=== PATIENT | female | born 1975 | race African-American/Black ===

== ENCOUNTER 2018-09-27 19:37 | Inpatient (IN) | payer MEDICARE, BC ==
[~2018-09-27] VITALS: Ht 175.3 cm; Wt 96.2 kg
[2018-09-27] MEDS ORDERED: ONDANSETRON 4 MG INJ IV STA (20:26)
[2018-09-27] MEDS ORDERED: KETOROLAC 15 MG INJ IV STA (20:26)
[2018-09-27] MEDS ORDERED: LIDOCAINE/MYLANTA 40 ML BTL PO STA (20:26)
[2018-09-27] MEDS ORDERED: SOD CHLORIDE 0.9% 500 ML IV STA (20:26)
[2018-09-27] MEDS ORDERED: BELLADONNA/PHENOBARBITAL TAB PO STA (20:26)
[2018-09-27] MEDS ORDERED: CALC-143 PO (23:04)
[2018-09-27] MEDS ORDERED: TRAM50TA PO (23:04)
[2018-09-27] MEDS ORDERED: ZOLP5TAB7 PO (23:04)
[2018-09-27] MEDS ORDERED: ASPI-817 PO (23:04)
[2018-09-27] MEDS ORDERED: NITR0.4T32 SL (23:04)
[2018-09-27] MEDS ORDERED: BEN50 PO (23:04)
[2018-09-27] MEDS ORDERED: CARB100T2 PO (23:04)
[2018-09-27] MEDS ORDERED: MULT-902 PO (23:04)
[2018-09-27] MEDS ORDERED: PHEN200C PO (23:04)
[2018-09-27] MEDS ORDERED: HYDR-3980 PO (23:04)
--- NOTE | 2018-09-27 23:28 | ERD ---
ER Documentation Chief Complaint Chief Complaint chest pain since 1300 HPI This is a 43-year-old woman with a history of NH x2 presenting with pressure- like chest discomfort, belching, nausea, diaphoresis. She states symptoms began after eating but she also states pain is similar to prior episodes of NH, she did use aspirin prior to arrival and nitroglycerin x2 with mild improvement in symptoms. She denies recent fevers or chills, no vomiting, no blood per rectum or melena, no recent weight loss, no calf or leg swelling. ROS All systems reviewed and are negative except as per history of present illness. Medications Home Meds Reported Medications Calcium Citrate/Vitamin D (Citracal-Vitamin D 200 MG-250) 1 Each Tablet, 1 EACH PO BID, TAB 09/27/18 Multivitamin/Iron/Folic Acid (Centrum Adults Tablet) 1 Each Tablet, 1 EACH PO DAILY, TAB 09/27/18 Tramadol Hcl* (Ultram*) 50 Mg Tablet, 50 MG PO Q6H PRN for PAIN, TAB 09/27/18 Hydrocodone/Acetaminophen ([place] 10-325 Tablet) 1 Each Tablet, 1 EACH PO, TAB 09/27/18 Diphenhydramine Hcl* (Benadryl*) 50 Mg Cap, 50 MG PO Q6 PRN for ITCHING, CAP 09/27/18 Carbamazepine* (Carbamazepine*) 100 Mg Tab.chew, 100 MG PO TID, #90 TAB.CHEW 09/27/18 Phenytoin* Sodium Extended (Dilantin*) 200 Mg Capsule, 200 MG PO HS, CAP 09/27/18 Aspirin* (Aspirin* EC) 81 Mg Tablet.dr, 81 MG PO DAILY, TAB 09/27/18 Zolpidem Tartrate* (Zolpidem Tartrate*) 5 Mg Tablet, 5 MG PO QHS for 30 Days 09/27/18 Nitroglycerin* (Nitroglycerin* SL) 0.4 Mg Tab.subl, 0.4 MG SL PRN for CHEST PAIN 09/27/18 Allergies Allergies: Coded Allergies: No Known Allergy (Unverified , 09/27/18) PMhx/Soc Hypertension, CAD, history of NH x2 History of Surgery: Yes (hernia repair) Anesthesia Reaction: No Hx Neurological Disorder: No Hx Respiratory Disorders: No Hx Cardiac Disorders: Yes (htn, ) Hx Miscellaneous Medical Probl: No Hx Alcohol Use: No Hx Substance Use: No Hx Tobacco Use: No Smoking Status: Never smoker FmHx Family History: No diabetes Physical Exam Vitals Vital Signs Date Temp Pulse Resp B/P (MAP) Pulse Ox O2 O2 Flow FiO2 Time Delivery Rate 09/27/18 97.7 72 18 110/78 100 Room Air 21:01 (89) 09/27/18 97.7 81 18 120/77 100 19:48 (91) Physical Exam GENERAL: Well-developed, well-nourished, well-hydrated, in no apparent distress, looks nontoxic in appearance CARDIAC: Regular rate and rhythm, no murmurs rubs or gallops LUNGS: Clear bilaterally no wheezing crackles or stridor ABDOMEN: Soft nontender, no guarding, no rigidity, no rebound, no psoas sign no obturator sign. Normoactive bowel sounds SKIN: Warm and dry to touch, no abrasions, contusions, or hematomas, no lacerations, no ecchymosis, no target lesions, and without ulcers EXTREMITIES: No clubbing cyanosis or edema, calves are bilaterally symmetrical, no Homans sign, no popliteal cord sign. Distal pulses equal and bilateral PSYCH: Normal affect without agitation or irritability Result Diagram: 09/27/18205509/27/182055 Results 24 hrs Laboratory Tests Test 09/27/18 20:56 09/27/18 21:18 White Blood Count 6.8 10^3/ul Red Blood Count 4.21 10^6/ul Hemoglobin 12.7 g/dl Hematocrit 38.6 % Mean Corpuscular Volume 91.7 fl Mean Corpuscular Hemoglobin 30.2 pg Mean Corpuscular Hemoglobin Concent 32.9 g/dl Red Cell Distribution Width 14.1 % Platelet Count 253 10^3/UL Mean Platelet Volume 9.6 fl Immature Granulocytes % 0.300 % Neutrophils % 47.0 % Lymphocytes % 41.6 % Monocytes % 8.9 % Eosinophils % 1.9 % Basophils % 0.3 % Nucleated Red Blood Cells % 0.0 /100WBC Immature Granulocytes # 0.020 10^3/ul Neutrophils # 3.2 10^3/ul Lymphocytes # 2.8 10^3/ul Monocytes # 0.6 10^3/ul Eosinophils # 0.1 10^3/ul Basophils # 0.0 10^3/ul Nucleated Red Blood Cells # 0.0 10^3/ul Sodium Level 143 mmol/L Potassium Level 3.6 mmol/L Chloride Level 108 mmol/L Carbon Dioxide Level 27 mmol/L Anion Gap 8 Blood Urea Nitrogen 16 mg/dl Creatinine 0.81 mg/dl Est Glomerular Filtrat Rate mL/min > 60 mL/min Glucose Level 101 mg/dl Calcium Level 9.3 mg/dl Total Bilirubin 0.3 mg/dl Direct Bilirubin 0.00 mg/dl Indirect Bilirubin 0.3 mg/dl Aspartate Amino Transf (AST/SGOT) 24 IU/L Alanine Aminotransferase (ALT/SGPT) 24 IU/L Alkaline Phosphatase 46 IU/L Troponin I < 0.012 ng/ml Total Protein 6.7 g/dl Albumin 3.9 g/dl Globulin 2.80 g/dl Albumin/Globulin Ratio 1.39 Lipase 454 U/L POC Beta HCG, Qualitative NEGATIVE Current Medications Medications Dose Sig/Bob Start Time Status Last (Trade) Ordered Route PRN Stop Time Admin Dose Reason Admin Sodium 500 ml @ Q1H STAT 09/27/18 DC 09/27/18 Chloride 500 mls/hr IV 20:26 21:01 09/27/18 21:25 Ondansetron 4 mg ONCE STAT 09/27/18 DC 09/27/18 HCl (Zofran IV 20:26 21:00 Inj) 09/27/18 20:28 40 ml ONCE STAT 09/27/18 DC 09/27/18 Miscellaneous PO 20:26 21:00 Medication 09/27/18 20:28 (Gi Cocktail (2)) Belladonna/ 2 tab ONCE STAT 09/27/18 DC 09/27/18 Phenobarbital PO 20:26 21:00 () 09/27/18 20:28 Ketorolac 15 mg ONCE STAT 09/27/18 DC 09/27/18 Tromethamine IV 20:26 21:32 (Toradol) 09/27/18 20:28 Procedures/MDM IV line was established 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 Patient was afebrile I administered a GI cocktail p.o., 500 cc normal saline, Toradol 15 mg IV, Zofran 4 mg IV EKG performed, read by me revealed a normal sinus rhythm at 71 bpm, normal axis, narrow QRS complex, no concerning ST elevations or depressions noted Chest X-ray 1V Interpreted by me: Soft Tissue: No acute abnormalities Bones: No acute abnormalities Mediastinum/Cardiac Silhouette/Lungs: No acute abnormalities CBC and electrolytes are normal, liver function tests were normal, troponin was negative Patient admitted to telemetry setting for continued medical management and cardiology consultation. Departure Diagnosis: Primary Impression: Chest pain Chest pain type: unspecified Qualified Codes: R07.9 - Chest pain, unspecified Condition: KEELY Washington MD Sep 27, 2018 23:28
[2018-09-28 00:47] VITALS: BP 126/72; PULSE 60; RESP 18
[2018-09-28 01:13] VITALS: Ht 175.3 cm; Wt 96.2 kg
[2018-09-28] MEDS ORDERED: NACL 0.9% 3 ML SYG IV SCH (01:30)
[2018-09-28] MEDS ORDERED: ACETAMINOPHEN 325 MG TAB PO PRN (01:30)
[2018-09-28] MEDS ORDERED: ALBUTEROL/IPRATROPIUM (NEB) 3 ML AMP HHN PRN (01:30)
[2018-09-28] MEDS ORDERED: NITROGLYCERIN (SL) 0.4 MG TAB SL PRN (01:30)
[2018-09-28] MEDS ORDERED: traMADol 50 MG TAB PO PRN (01:30)
[2018-09-28] MEDS ORDERED: CARBAMAZEPINE 200 MG TAB PO SCH (01:30)
[2018-09-28] MEDS ORDERED: ONDANSETRON 4 MG INJ IV PRN (01:30)
[2018-09-28] MEDS ORDERED: DIPHENHYDRAMINE 50 MG CAP PO PRN (01:30)
[2018-09-28] MEDS: PHENYTOIN 100 MG CAP PO SCH ×3 (01:43→12:19)
[2018-09-28] MEDS: CARBAMAZEPINE 200 MG TAB PO SCH ×3 (01:43→12:20)
[2018-09-28 04:22] VITALS: BP 117/75; PULSE 72; RESP 18
[2018-09-28 07:50] VITALS: BP 118/70; PULSE 57; RESP 18
[2018-09-28] MEDS ORDERED: carBAMAZepine CHEW 100 MG CHEW PO SCH ×2 (09:00)
[2018-09-28] MEDS ORDERED: HEPARIN 5,000 UNIT/1 ML VIAL SC SCH (09:00)
[2018-09-28] MEDS ORDERED: MULTIVITAMINS/MINERALS TAB PO SCH (09:00)
[2018-09-28] MEDS ORDERED: ASPIRIN (EC) 81 MG TAB PO SCH (09:00)
--- NOTE | 2018-09-28 09:15 | HP ---
Date/Time of Note Date/Time of Note DATE: 09/28/18 TIME: 09:12 Assessment/Plan VTE Prophylaxis Pharmacological prophylaxis: heparin Lines/Catheters IV Catheter Type (from Nrsg): Saline Lock Assessment/Plan Assessment/Plan 43-year-old female with self-reported history of RI x2 (no cardiac cath) here with chest pain with associated left arm numbness. Need to rule out ACS PLAN -Telemetry monitoring -Serial troponin -Aspirin with as needed nitro -2D echo and cardiology consult -Trial of PPI Result Diagram: 09/28/18 0637 09/28/18 0637 Results 24hrs Laboratory Tests Test 09/27/18 20:56 09/27/18 21:18 09/28/18 01:35 09/28/18 06:37 White Blood Count 6.8 7.1 Red Blood Count 4.21 4.60 Hemoglobin 12.7 13.8 Hematocrit 38.6 41.7 Mean Corpuscular 91.7 90.7 Volume Mean Corpuscular 30.2 30.0 Hemoglobin Mean Corpuscular 32.9 33.1 Hemoglobin Concent Red Cell 14.1 14.0 Distribution Width Platelet Count 253 284 Mean Platelet Volume 9.6 9.7 Immature 0.300 0.100 Granulocytes % Neutrophils % 47.0 50.9 Lymphocytes % 41.6 37.4 Monocytes % 8.9 9.3 Eosinophils % 1.9 2.0 Basophils % 0.3 0.3 Nucleated Red Blood 0.0 0.0 Cells % Immature 0.020 0.010 Granulocytes # Neutrophils # 3.2 3.6 Lymphocytes # 2.8 2.6 Monocytes # 0.6 0.7 Eosinophils # 0.1 0.1 Basophils # 0.0 0.0 Nucleated Red Blood 0.0 0.0 Cells # Sodium Level 143 142 Potassium Level 3.6 4.3 Chloride Level 108 109 Carbon Dioxide Level 27 25 Anion Gap 8 8 Blood Urea Nitrogen 16 14 Creatinine 0.81 0.89 Est Glomerular > 60 > 60 Filtrat Rate mL/min Glucose Level 101 107 Calcium Level 9.3 9.0 Total Bilirubin 0.3 0.4 Direct Bilirubin 0.00 0.00 Indirect Bilirubin 0.3 0.4 Aspartate Amino 24 30 Transf (AST/SGOT) Alanine 24 19 Aminotransferase (AL T/SGPT) Alkaline Phosphatase 46 56 Troponin I < 0.012 < 0.012 Total Protein 6.7 7.0 Albumin 3.9 4.0 Globulin 2.80 3.00 Albumin/Globulin 1.39 1.33 Ratio Lipase 454 H 126 POC Beta HCG, NEGATIVE Qualitative Creatine Kinase 181 Creatine Kinase 0.5 Index Creatinine Kinase MB 0.97 (Mass) Hemoglobin A1c 5.5 Magnesium Level 2.0 Triglycerides Level 97 Cholesterol Level 158 LDL Cholesterol, 98 Calculated HDL Cholesterol 41 Cholesterol/HDL 3.8 Ratio Thyroid Stimulating 2.560 Hormone (TSH) Test 09/28/18 06:38 Creatine Kinase 194 Creatine Kinase 0.5 Index Creatinine Kinase MB 0.94 (Mass) Troponin I < 0.012 HPI/ROS Admit Date/Time Admit Date/Time Sep 27, 2018 at 23:28 Hx of Present Illness Patient is a 43-year-old female with a self-reported history of RI x2 (2 years ago and last year). Patient presented to ER complaining of chest pain. Pain is located in the mid chest with associated left arm numbness. Patient initially thought it was " gas pain", but when the pain persisted, she decided to come to the ER for evaluation. She took nitro which improved the pain. She said she never had a cardiac cath when she was diagnosed with reported RI at [facility]. She reported nausea, but no vomiting. She did however report some diaphoresis. She states she has been taking her aspirin regularly, however her cholesterol medication has been stopped by her PCP. When she presented to the ER, vitals were stable. First troponin negative, EKG without ST-T wave abnormalities. CBC and CMP unremarkable. Chest x-ray without acute findings PMH/Family/Social Past Medical History Past Surgical Hx: other (see HPI) Family History Significant Family History: no pertinent family hx Social History Alcohol Use: none Smoking Status: Never smoker Drug Use: none Exam Constitutional: No acute distress Head: normocephalic, atraumatic Eyes: EOMI, PERRL Respiratory: no distress Cardiovascular: regular rate and rhythm Gastrointestinal: soft Extremities: normal pulses Medications Current Medications Phenytoin (Dilantin) 100 mg TID PO Last administered on 09/28/18at 08:32; Admin Dose 100 MG; Start 09/28/18 at 01:30 IV Flush (NS 3 ml) 3 ml PER PROTOCOL IV ; Start 09/28/18 at 01:30 Ondansetron HCl (Zofran Inj) 4 mg Q6H PRN IV NAUSEA/VOMITING; Start 09/28/18 at 01:30 Nitroglycerin (Nitroglycerin (Sl Tab) 0.4 Mg) 1 tab Q5M PRN SL .CHEST PAIN; Start 09/28/18 at 01:30 Acetaminophen (Tylenol Tab) 650 mg Q6H PRN PO .PAIN 1-3 OR TEMP; Start 09/28/18 at 01:30 Heparin Sodium (Porcine) (Heparin (5000 Units/1ml)) 5,000 unit Q12 SC Last administered on 09/28/18at 08:32; Admin Dose 5,000 UNIT; Start 09/28/18 at 09:00 Albuterol/ Ipratropium (Duoneb) 3 ml Q2H RESP THERAPY PRN HHN SHORTNESS OF BREATH; Start 09/28/18 at 01:30 Aspirin (Halfprin) 81 mg DAILY PO Last administered on 09/28/18at 08:31; Admin Dose 81 MG; Start 09/28/18 at 09:00 Diphenhydramine HCl (Benadryl) 50 mg Q6 PRN PO ITCHING; Start 09/28/18 at 01:30 Tramadol HCl (Ultram) 50 mg Q6H PRN PO PAIN; Start 09/28/18 at 01:30 Zolpidem Tartrate (Ambien) 5 mg QHS PO ; Start 09/28/18 at 21:00 Multivitamins/ Minerals (Theragran-M) 1 tab DAILY PO Last administered on 09/28/18at 08:32; Admin Dose 1 TAB; Start 09/28/18 at 09:00 Carbamazepine (Tegretol) 100 mg TID PO Last administered on 09/28/18at 08:33; Admin Dose 100 MG; Start 09/28/18 at 01:30 Coded Allergies: No Known Allergy (Unverified , 09/27/18) Social History Smoking Status: Never smoker Exam/Review of Systems Vital Signs Vitals Vital Signs Date Temp Pulse Resp B/P (MAP) Pulse Ox O2 O2 Flow FiO2 Time Delivery Rate 09/28/18 98.0 57 18 118/70 95 Room Air 07:50 (86) Intake and Output 09/27/18 09/27/18 09/28/18 1515:00 23:00 07:00 IntakeIntake Total 500 ml 340 ml BalanceBalance 500 ml 340 ml JEANIE GIANG MD Sep 28, 2018 09:15
[2018-09-28] MEDS ORDERED: PANTOPRAZOLE (EC) 40 MG TAB PO ONE (09:30)
--- NOTE | 2018-09-28 09:44 | RADRPT ---
Echocardiogram Report Patient Name: VANESSA CLANCYPatient ID: [id number] : 1975 (43y 7m)Study Date: 09/28/2018 7:57:32 AM Gender: FAccession #: [id number] Tech: Berta Caicedo [facility] Location: [id number] Ref.Physician: JEANIE GIANG Height(Cm): BSA: Weight(Kg): Quality: AdequateOrder Physician: JEANIE GIANG Account #: Procedures: Echocardiographic Report: Transthoracic echocardiogram with complete 2D, M-Mode, and doppler examination. Indications: Chest Pain. Measurements: 2D/M Mode Doppler Measurement Value Normal Range Measurement Value Normal Range LVIDd 2D 4.5 [ 3.8 - 5.2 ] cm AV Peak Glynn 1.2 [ 100.0 - 170.0 ] cm/sec LVIDs 2D 2.3 [ 2.2 - 3.5 ] cm AV Peak PG 5.0 [ 2.0 - 9.0 ] mmHg LVPWd 2D 0.9 [ 0.6 - 0.9 ] cm LVOT Peak Glynn 0.8 [ 70.0 - 110.0 ] cm/sec IVSd 2D 1.0 [ 0.6 - 0.9 ] cm LVOT Peak PG 3.0 [ 2.0 - 6.0 ] mmHg AoR Diam 2D 2.9 [ 2.3 - 3.1 ] cm MV E Peak Glynn 0.8 [ 60.0 - 130.0 ] cm/sec EDV 2D 91.5 [ 46.0 - 106.0 ] ml MV A Peak Glynn 0.7 [ 100.0 - 120.0 ] cm/sec ESV 2D 19.1 [ 14.0 - 42.0 ] ml MV E/A 1.1 [ 0.8 - 1.5 ] ratio EF 2D 79.1 [ 54.0 - 74.0 ] percent MV Decel Time 183 [ 104 - 258 ] msec LA Dimen 2D 3.3 [ 2.7 - 3.8 ] cm Lat E` Glynn 0.1 [ 10.0 - 15.0 ] cm/sec Lateral E/E` 7.3 [ 1.0 - 2.0 ] ratio Med E` Glynn 0.1 cm/sec MV E/A 1.1 [ 0.8 - 1.5 ] ratio Findings: Left Ventricle: Normal left ventricular systolic function. Normal left ventricular cavity size. Normal left ventricular wall thickness. Ejection fraction is visually estimated at 55 %. Tissue Doppler/Mitral Doppler indices are within normal limits. Right Ventricle: Normal right ventricular size. Normal right ventricular systolic function. Left Atrium: The left atrium is normal in size. Right Atrium: The right atrium is normal in size. Mitral Valve: Normal appearance and function of the mitral valve with trace physiologic regurgitation. Aortic Valve: Normal appearance of the aortic valve. No significant aortic stenosis or insufficiency. Tricuspid Valve: Normal appearance and function of the tricuspid valve with trace physiologic regurgitation. Unable to obtain RVSP due to minimal presence of tricuspid regurgitation. There is trace tricuspid regurgitation. Pulmonic Valve: Pulmonic valve not well visualized. Pericardium: Normal pericardium with no significant pericardial effusion. Aorta: Normal aortic root. IVC: Normal size and unclear respiratory collapse. Conclusions: Normal left ventricular systolic function. Normal left ventricular cavity size. Normal left ventricular wall thickness. Ejection fraction is visually estimated at 55 %. Tissue Doppler/Mitral Doppler indices are within normal limits. No significant valvular stenosis or regurgitation seen. Unable to obtain RVSP due to minimal presence of tricuspid regurgitation. Electronically Signed By: Harlan Green 2018-09-28 09:43:14 PDT
--- NOTE | 2018-09-28 11:11 | PN ---
Date/Time of Note Date/Time of Note DATE: 09/28/18 TIME: 11:09 Assessment/Plan VTE Prophylaxis Risk score (from Ns)>0 risk: 2 SCD applied (from Ns): No SCD contraindicated: other Pharmacological prophylaxis: heparin Lines/Catheters IV [facility]from [facility] Saline Lock Assessment/Plan Hospital Course S: Less chest pain, seen by cardiology team. O: VS - see below PE: GENERAL: Well-developed, well-nourished, well-hydrated, in no apparent distress CARDIAC: Regular rate and rhythm, no murmurs rubs or gallops LUNGS: Clear bilaterally no wheezing crackles or stridor ABDOMEN: Soft nontender, no guarding, no rigidity, no rebound, no psoas sign no obturator sign. Normoactive bowel sounds SKIN: Warm and dry to touch, no abrasions, contusions, or hematomas, no lacerations, no ecchymosis, no target lesions, and without ulcers EXTREMITIES: No clubbing cyanosis or edema NEURO: No focal deficits 2D echo: Conclusions: Normal left ventricular systolic function. Normal left ventricular cavity size. Normal left ventricular wall thickness. Ejection fraction is visually estimated at 55 %. Tissue Doppler/Mitral Doppler indices are within normal limits. No significant valvular stenosis or regurgitation seen. Unable to obtain RVSP due to minimal presence of tricuspid regurgitation. Assessment/Plan: 43-year-old female with self-reported history of MN x2 (no cardiac cath) here with chest pain with associated left arm numbness. Need to rule out ACS # cp: Again patient has prior history of heart attack x2 in the past -For now continue Telemetry monitoring -Aspirin with as needed nitro -Follow-up recommendations from -Trial of PPI #: Obesity: Counseled on weight cessation Result Diagram: 09/28/1837 09/28/1837 Results 24hrs Laboratory Tests Test 09/27/18 20:56 09/27/18 21:18 09/28/18 01:35 09/28/18 06:37 White Blood Count 6.8 7.1 Red Blood Count 4.21 4.60 Hemoglobin 12.7 13.8 Hematocrit 38.6 41.7 Mean Corpuscular 91.7 90.7 Volume Mean Corpuscular 30.2 30.0 Hemoglobin Mean Corpuscular 32.9 33.1 Hemoglobin Concent Red Cell 14.1 14.0 Distribution Width Platelet Count 253 284 Mean Platelet Volume 9.6 9.7 Immature 0.300 0.100 Granulocytes % Neutrophils % 47.0 50.9 Lymphocytes % 41.6 37.4 Monocytes % 8.9 9.3 Eosinophils % 1.9 2.0 Basophils % 0.3 0.3 Nucleated Red Blood 0.0 0.0 Cells % Immature 0.020 0.010 Granulocytes # Neutrophils # 3.2 3.6 Lymphocytes # 2.8 2.6 Monocytes # 0.6 0.7 Eosinophils # 0.1 0.1 Basophils # 0.0 0.0 Nucleated Red Blood 0.0 0.0 Cells # Sodium Level 143 142 Potassium Level 3.6 4.3 Chloride Level 108 109 Carbon Dioxide Level 27 25 Anion Gap 8 8 Blood Urea Nitrogen 16 14 Creatinine 0.81 0.89 Est Glomerular > 60 > 60 Filtrat Rate mL/min Glucose Level 101 107 Calcium Level 9.3 9.0 Total Bilirubin 0.3 0.4 Direct Bilirubin 0.00 0.00 Indirect Bilirubin 0.3 0.4 Aspartate Amino 24 30 Transf (AST/SGOT) Alanine 24 19 Aminotransferase (AL T/SGPT) Alkaline Phosphatase 46 56 Troponin I < 0.012 < 0.012 Total Protein 6.7 7.0 Albumin 3.9 4.0 Globulin 2.80 3.00 Albumin/Globulin 1.39 1.33 Ratio Lipase 454 H 126 POC Beta HCG, NEGATIVE Qualitative Creatine Kinase 181 Creatine Kinase 0.5 Index Creatinine Kinase MB 0.97 (Mass) Hemoglobin A1c 5.5 Magnesium Level 2.0 Triglycerides Level 97 Cholesterol Level 158 LDL Cholesterol, 98 Calculated HDL Cholesterol 41 Cholesterol/HDL 3.8 Ratio Thyroid Stimulating 2.560 Hormone (TSH) Test 09/28/18 06:38 Creatine Kinase 194 Creatine Kinase 0.5 Index Creatinine Kinase MB 0.94 (Mass) Troponin I < 0.012 Exam/Review of Systems Exam Vitals Vital Signs Date Temp Pulse Resp B/P (MAP) Pulse Ox O2 O2 Flow FiO2 Time Delivery Rate 09/28/18 98.0 57 18 118/70 95 Room Air 07:50 (86) Intake and Output 09/27/18 09/27/18 09/28/18 1515:00 23:00 07:00 IntakeIntake Total 500 ml 340 ml BalanceBalance 500 ml 340 ml Results Results 24hrs Laboratory Tests Test 09/27/18 20:56 09/27/18 21:18 09/28/18 01:35 09/28/18 06:37 White Blood Count 6.8 7.1 Red Blood Count 4.21 4.60 Hemoglobin 12.7 13.8 Hematocrit 38.6 41.7 Mean Corpuscular 91.7 90.7 Volume Mean Corpuscular 30.2 30.0 Hemoglobin Mean Corpuscular 32.9 33.1 Hemoglobin Concent Red Cell 14.1 14.0 Distribution Width Platelet Count 253 284 Mean Platelet Volume 9.6 9.7 Immature 0.300 0.100 Granulocytes % Neutrophils % 47.0 50.9 Lymphocytes % 41.6 37.4 Monocytes % 8.9 9.3 Eosinophils % 1.9 2.0 Basophils % 0.3 0.3 Nucleated Red Blood 0.0 0.0 Cells % Immature 0.020 0.010 Granulocytes # Neutrophils # 3.2 3.6 Lymphocytes # 2.8 2.6 Monocytes # 0.6 0.7 Eosinophils # 0.1 0.1 Basophils # 0.0 0.0 Nucleated Red Blood 0.0 0.0 Cells # Sodium Level 143 142 Potassium Level 3.6 4.3 Chloride Level 108 109 Carbon Dioxide Level 27 25 Anion Gap 8 8 Blood Urea Nitrogen 16 14 Creatinine 0.81 0.89 Est Glomerular > 60 > 60 Filtrat Rate mL/min Glucose Level 101 107 Calcium Level 9.3 9.0 Total Bilirubin 0.3 0.4 Direct Bilirubin 0.00 0.00 Indirect Bilirubin 0.3 0.4 Aspartate Amino 24 30 Transf (AST/SGOT) Alanine 24 19 Aminotransferase (AL T/SGPT) Alkaline Phosphatase 46 56 Troponin I < 0.012 < 0.012 Total Protein 6.7 7.0 Albumin 3.9 4.0 Globulin 2.80 3.00 Albumin/Globulin 1.39 1.33 Ratio Lipase 454 H 126 POC Beta HCG, NEGATIVE Qualitative Creatine Kinase 181 Creatine Kinase 0.5 Index Creatinine Kinase MB 0.97 (Mass) Hemoglobin A1c 5.5 Magnesium Level 2.0 Triglycerides Level 97 Cholesterol Level 158 LDL Cholesterol, 98 Calculated HDL Cholesterol 41 Cholesterol/HDL 3.8 Ratio Thyroid Stimulating 2.560 Hormone (TSH) Test 09/28/18 06:38 Creatine Kinase 194 Creatine Kinase 0.5 Index Creatinine Kinase MB 0.94 (Mass) Troponin I < 0.012 Medications Medication Current Medications Phenytoin (Dilantin) 100 mg TID PO Last administered on 09/28/18 08:32; Admin Dose 100 MG; Start 09/28/18 at 01:30 IV Flush (NS 3 ml) 3 ml PER PROTOCOL IV ; Start 09/28/18 at 01:30 Ondansetron HCl (Zofran Inj) 4 mg Q6H PRN IV NAUSEA/VOMITING; Start 09/28/18 at 01:30 Nitroglycerin (Nitroglycerin (Sl Tab) 0.4 Mg) 1 tab Q5M PRN SL .CHEST PAIN; Start 09/28/18 at 01:30 Acetaminophen (Tylenol Tab) 650 mg Q6H PRN PO .PAIN 1-3 OR TEMP; Start 09/28/18 at 01:30 Heparin Sodium (Porcine) (Heparin (5000 Units/1ml)) 5,000 unit Q12 SC Last ad ministered on 09/28/18at 08:32; Admin Dose 5,000 UNIT; Start 09/28/18 at 09:00 Albuterol/ Ipratropium (Duoneb) 3 ml Q2H RESP THERAPY PRN HHN SHORTNESS OF BREATH; Start 09/28/18 at 01:30 Aspirin (Halfprin) 81 mg DAILY PO Last administered on 09/28/18 08:31; Admin Dose 81 MG; Start 09/28/18 at 09:00 Diphenhydramine HCl (Benadryl) 50 mg Q6 PRN PO ITCHING; Start 09/28/18 at 01:30 Tramadol HCl (Ultram) 50 mg Q6H PRN PO PAIN; Start 09/28/18 at 01:30 Zolpidem Tartrate (Ambien) 5 mg QHS PO ; Start 09/28/18 at 21:00 Multivitamins/ Minerals (Theragran-M) 1 tab DAILY PO Last administered on 09/28/18 08:32; Admin Dose 1 TAB; Start 09/28/18 at 09:00 Carbamazepine (Tegretol) 100 mg TID PO Last administered on 09/28/18 08:33; Admin Dose 100 MG; Start 09/28/18 at 01:30 Pantoprazole (Protonix Tab) 40 mg DAILY@06 PO ; Start 09/29/18 at 06:00 PAULETTE ADAMSON Sep 28, 2018 11:11
[2018-09-28 11:29] VITALS: BP 112/67; PULSE 75; RESP 18
--- NOTE | 2018-09-28 11:52 | CONS ---
Assessment/Plan Assessment/Plan Hospital Course (Demo Recall) Chest pain: unclear etiology. Trops and EKG unremarkable. She did have elevated lipase so could have had referred pain from this. History is somewhat unclear but with "normal" cath 2 yrs ago she either was diagnosed with coronary vasospasm (hence the PRN NTG) or maybe spontaneous coronary artery dissection (would explain why nothing was done and why she was told not to over exert herself). In any case, troponins are negative, echo is normal, and her symptoms are resolved. No further testing indicated at this time ?Pancreatitis: lipases elevated and now normalized. Clinically not consistent by exam or symptoms -ok for d/c from cardiac perspective -f/u with Dr. Harley as outpt Consultation Date/Type/Reason Admit Date/Time Sep 27, 2018 at 23:28 Date of Consultation: Sep 28, 2018 Type of Consult Cardiology Reason for Consultation Chest pain Requesting Provider: JEANIE GIANG MD Date/Time of Note DATE: 09/28/18 TIME: 11:43 Hx of Present Illness 4 yo F with a h/o "GA" who presented with chest pain. She notes that about 2 years ago she was diagnosed with an GA and she had a cardiac cath at that time. She does not know the details but she was told she should take ASA and as needed NTG as well as not to over exert herself. She sees a lead electrician, Dr. Harley, who has told her she is doing well and she recently had a normal stress test. She was at home when she started to feel pressure in her chest and left arm numbness. Her family urged her to take a NTG and go to the ER. She did feel improvement with the NTG. No recurrence of symptoms. She walked around the unit without symptoms. She was also noted to have elevated lipase on admission which has normalized but she denies epigastric pain or pain with eating. per HPI Past Medical History per hPI Home Meds Reported Medications Calcium Citrate/Vitamin D (Citracal-Vitamin D 200 MG-250) 1 Each Tablet, 1 EACH PO BID, TAB 09/27/18 Multivitamin/Iron/Folic Acid (Centrum Adults Tablet) 1 Each Tablet, 1 EACH PO DAILY, TAB 09/27/18 Tramadol Hcl* (Ultram*) 50 Mg Tablet, 50 MG PO Q6H PRN for PAIN, TAB 09/27/18 Hydrocodone/Acetaminophen ([place] 10-325 Tablet) 1 Each Tablet, 1 EACH PO, TAB 09/27/18 Diphenhydramine Hcl* (Benadryl*) 50 Mg Cap, 50 MG PO Q6 PRN for ITCHING, CAP 09/27/18 Carbamazepine* (Carbamazepine*) 100 Mg Tab.chew, 100 MG PO TID, #90 TAB.CHEW 09/27/18 Phenytoin* Sodium Extended (Dilantin*) 200 Mg Capsule, 200 MG PO HS, CAP 09/27/18 Aspirin* (Aspirin* EC) 81 Mg Tablet.dr, 81 MG PO DAILY, TAB 09/27/18 Zolpidem Tartrate* (Zolpidem Tartrate*) 5 Mg Tablet, 5 MG PO QHS for 30 Days 09/27/18 Nitroglycerin* (Nitroglycerin* SL) 0.4 Mg Tab.subl, 0.4 MG SL PRN for CHEST PAIN 09/27/18 Medications Current Medications Phenytoin (Dilantin) 100 mg TID PO Last administered on 09/28/18at 08:32; Admin Dose 100 MG; Start 09/28/18 at 01:30 IV Flush (NS 3 ml) 3 ml PER PROTOCOL IV ; Start 09/28/18 at 01:30 Ondansetron HCl (Zofran Inj) 4 mg Q6H PRN IV NAUSEA/VOMITING; Start 09/28/18 at 01:30 Nitroglycerin (Nitroglycerin (Sl Tab) 0.4 Mg) 1 tab Q5M PRN SL .CHEST PAIN; Start 09/28/18 at 01:30 Acetaminophen (Tylenol Tab) 650 mg Q6H PRN PO .PAIN 1-3 OR TEMP; Start 09/28/18 at 01:30 Heparin Sodium (Porcine) (Heparin (5000 Units/1ml)) 5,000 unit Q12 SC Last administered on 09/28/18at 08:32; Admin Dose 5,000 UNIT; Start 09/28/18 at 09:00 Albuterol/ Ipratropium (Duoneb) 3 ml Q2H RESP THERAPY PRN HHN SHORTNESS OF BREATH; Start 09/28/18 at 01:30 Aspirin (Halfprin) 81 mg DAILY PO Last administered on 09/28/18at 08:31; Admin Dose 81 MG; Start 09/28/18 at 09:00 Diphenhydramine HCl (Benadryl) 50 mg Q6 PRN PO ITCHING; Start 09/28/18 at 01:30 Tramadol HCl (Ultram) 50 mg Q6H PRN PO PAIN; Start 09/28/18 at 01:30 Zolpidem Tartrate (Ambien) 5 mg QHS PO ; Start 09/28/18 at 21:00 Multivitamins/ Minerals (Theragran-M) 1 tab DAILY PO Last administered on 09/28/18at 08:32; Admin Dose 1 TAB; Start 09/28/18 at 09:00 Carbamazepine (Tegretol) 100 mg TID PO Last administered on 09/28/18at 08:33; Admin Dose 100 MG; Start 09/28/18 at 01:30 Pantoprazole (Protonix Tab) 40 mg DAILY@06 PO ; Start 09/29/18 at 06:00 Allergies: Coded Allergies: No Known Allergy (Unverified , 09/27/18) Social History Smoking Status: Never smoker Exam/Review of Systems Vital Signs Vitals Vital Signs Date Temp Pulse Resp B/P (MAP) Pulse Ox O2 O2 Flow FiO2 Time Delivery Rate 09/28/18 98.0 75 18 112/67 95 Room Air 11:29 (82) Intake and Output 09/27/18 09/27/18 09/28/18 1515:00 23:00 07:00 IntakeIntake Total 500 ml 340 ml BalanceBalance 500 ml 340 ml Exam Constitutional: alert, oriented Psych: no complaints, nl mood/affect Head: normocephalic, atraumatic Neck: No jvd Respiratory: clear to auscultation; No crackles/rales Cardiovascular: regular rate and rhythm; No edema, No systolic murmur Gastrointestinal: soft, non-tender; No distended Neurological: nl mental status, nl speech Labs Result Diagram: 09/28/1863609/28/1837 Results 24hrs Laboratory Tests Test 09/27/18 20:56 09/27/18 21:18 09/28/18 01:35 09/28/18 06:37 White Blood Count 6.8 7.1 Red Blood Count 4.21 4.60 Hemoglobin 12.7 13.8 Hematocrit 38.6 41.7 Mean Corpuscular 91.7 90.7 Volume Mean Corpuscular 30.2 30.0 Hemoglobin Mean Corpuscular 32.9 33.1 Hemoglobin Concent Red Cell 14.1 14.0 Distribution Width Platelet Count 253 284 Mean Platelet Volume 9.6 9.7 Immature 0.300 0.100 Granulocytes % Neutrophils % 47.0 50.9 Lymphocytes % 41.6 37.4 Monocytes % 8.9 9.3 Eosinophils % 1.9 2.0 Basophils % 0.3 0.3 Nucleated Red Blood 0.0 0.0 Cells % Immature 0.020 0.010 Granulocytes # Neutrophils # 3.2 3.6 Lymphocytes # 2.8 2.6 Monocytes # 0.6 0.7 Eosinophils # 0.1 0.1 Basophils # 0.0 0.0 Nucleated Red Blood 0.0 0.0 Cells # Sodium Level 143 142 Potassium Level 3.6 4.3 Chloride Level 108 109 Carbon Dioxide Level 27 25 Anion Gap 8 8 Blood Urea Nitrogen 16 14 Creatinine 0.81 0.89 Est Glomerular > 60 > 60 Filtrat Rate mL/min Glucose Level 101 107 Calcium Level 9.3 9.0 Total Bilirubin 0.3 0.4 Direct Bilirubin 0.00 0.00 Indirect Bilirubin 0.3 0.4 Aspartate Amino 24 30 Transf (AST/SGOT) Alanine 24 19 Aminotransferase (AL T/SGPT) Alkaline Phosphatase 46 56 Troponin I < 0.012 < 0.012 Total Protein 6.7 7.0 Albumin 3.9 4.0 Globulin 2.80 3.00 Albumin/Globulin 1.39 1.33 Ratio Lipase 454 H 126 POC Beta HCG, NEGATIVE Qualitative Creatine Kinase 181 Creatine Kinase 0.5 Index Creatinine Kinase MB 0.97 (Mass) Hemoglobin A1c 5.5 Magnesium Level 2.0 Triglycerides Level 97 Cholesterol Level 158 LDL Cholesterol, 98 Calculated HDL Cholesterol 41 Cholesterol/HDL 3.8 Ratio Thyroid Stimulating 2.560 Hormone (TSH) Test 09/28/18 06:38 Creatine Kinase 194 Creatine Kinase 0.5 Index Creatinine Kinase MB 0.94 (Mass) Troponin I < 0.012 Medications Medications Current Medications Phenytoin (Dilantin) 100 mg TID PO Last administered on 09/28/18at 08:32; Admin Dose 100 MG; Start 09/28/18 at 01:30 IV Flush (NS 3 ml) 3 ml PER PROTOCOL IV ; Start 09/28/18 at 01:30 Ondansetron HCl (Zofran Inj) 4 mg Q6H PRN IV NAUSEA/VOMITING; Start 09/28/18 at 01:30 Nitroglycerin (Nitroglycerin (Sl Tab) 0.4 Mg) 1 tab Q5M PRN SL .CHEST PAIN; Start 09/28/18 at 01:30 Acetaminophen (Tylenol Tab) 650 mg Q6H PRN PO .PAIN 1-3 OR TEMP; Start 09/28/18 at 01:30 Heparin Sodium (Porcine) (Heparin (5000 Units/1ml)) 5,000 unit Q12 SC Last administered on 09/28/18at 08:32; Admin Dose 5,000 UNIT; Start 09/28/18 at 09:00 Albuterol/ Ipratropium (Duoneb) 3 ml Q2H RESP THERAPY PRN HHN SHORTNESS OF BREATH; Start 09/28/18 at 01:30 Aspirin (Halfprin) 81 mg DAILY PO Last administered on 09/28/18at 08:31; Admin Dose 81 MG; Start 09/28/18 at 09:00 Diphenhydramine HCl (Benadryl) 50 mg Q6 PRN PO ITCHING; Start 09/28/18 at 01:30 Tramadol HCl (Ultram) 50 mg Q6H PRN PO PAIN; Start 09/28/18 at 01:30 Zolpidem Tartrate (Ambien) 5 mg QHS PO ; Start 09/28/18 at 21:00 Multivitamins/ Minerals (Theragran-M) 1 tab DAILY PO Last administered on 09/28/18at 08:32; Admin Dose 1 TAB; Start 09/28/18 at 09:00 Carbamazepine (Tegretol) 100 mg TID PO Last administered on 09/28/18at 08:33; Admin Dose 100 MG; Start 09/28/18 at 01:30 Pantoprazole (Protonix Tab) 40 mg DAILY@06 PO ; Start 09/29/18 at 06:00 GREG BUTLER Sep 28, 2018 11:52
--- NOTE | 2018-09-28 12:06 | PDOCDIS ---
Discharge Instructions CONDITION [id number] Patient Condition: [id number] Stable HOME CARE INSTRUCTIONS: [id number] Diet Instructions: [id number] Low Fat /Cholesterol ACTIVITY: [id number] Activity Restrictions: [id number] Slowly Increase Activity Rest between Activity Avoid heavy lifting FOLLOW UP/APPOINTMENTS Follow-up Plan Please take your medication as prescribed, see your doctor in the clinic in the next 1 week. PAULETTE ADAMSON Sep 28, 2018 12:06
--- NOTE | 2018-09-28 12:11 | DS ---
Date/Time of Note Date/Time of Note DATE: 09/28/18 TIME: 12:08 Discharge Summary Admission/Discharge Info Admit Date/Time Sep 27, 2018 at 23:28 Discharge Date/Time Discharge Diagnosis # cp: Resolved, ruled out for acute coronary syndrome and evaluate by cardiology team during his hospital stay. # Obesity: Counseled on weight cessation Patient Condition: Stable Procedures 2D echo: Conclusions: Normal left ventricular systolic function. Normal left ventricular cavity size. Normal left ventricular wall thickness. Ejection fraction is visually estimated at 55 %. Tissue Doppler/Mitral Doppler indices are within normal limits. No significant valvular stenosis or regurgitation seen. Unable to obtain RVSP due to minimal presence of tricuspid regurgitation. Hx of Present Illness 43-year-old female with a self-reported history of NE x2 (2 years ago and last year). Patient presented to ER complaining of chest pain. Pain is located in the mid chest with associated left arm numbness. Patient initially thought it was " gas pain", but when the pain persisted, she decided to come to the ER for evaluation. She took nitro which improved the pain. She said she never had a cardiac cath when she was diagnosed with reported NE at [facility]. She reported nausea, but no vomiting. She did however report some diaphoresis. She states she has been taking her aspirin regularly, however her cholesterol medication has been stopped by her PCP. When she presented to the ER, vitals were stable. First troponin negative, EKG without ST-T wave abnormalities. CBC and CMP unremarkable. Chest x-ray without acute findings Hospital Course Patient was admitted and seen by cardiology team during his hospital stay. Her chest pain symptoms improved. She ruled out for acute coronary syndrome as her troponins are negative x3. She was able to ambulate, tolerated p.o. diet. Per cardiology team there is no further testing indicated at this time. Patient follow-up with her outpatient ops analyst and be discharged later today in improved condition. See below for full list of discharge medications. Home Meds Reported Medications Calcium Citrate/Vitamin D (Citracal-Vitamin D 200 MG-250) 1 Each Tablet, 1 EACH PO BID, TAB 09/27/18 Multivitamin/Iron/Folic Acid (Centrum Adults Tablet) 1 Each Tablet, 1 EACH PO DAILY, TAB 09/27/18 Tramadol Hcl* (Ultram*) 50 Mg Tablet, 50 MG PO Q6H PRN for PAIN, TAB 09/27/18 Hydrocodone/Acetaminophen ([place] 10-325 Tablet) 1 Each Tablet, 1 EACH PO, TAB 09/27/18 Diphenhydramine Hcl* (Benadryl*) 50 Mg Cap, 50 MG PO Q6 PRN for ITCHING, CAP 09/27/18 Carbamazepine* (Carbamazepine*) 100 Mg Tab.chew, 100 MG PO TID, #90 TAB.CHEW 09/27/18 Phenytoin* Sodium Extended (Dilantin*) 200 Mg Capsule, 200 MG PO HS, CAP 09/27/18 Aspirin* (Aspirin* EC) 81 Mg Tablet.dr, 81 MG PO DAILY, TAB 09/27/18 Zolpidem Tartrate* (Zolpidem Tartrate*) 5 Mg Tablet, 5 MG PO QHS for 30 Days 09/27/18 Nitroglycerin* (Nitroglycerin* SL) 0.4 Mg Tab.subl, 0.4 MG SL PRN for CHEST PAIN 09/27/18 Follow-up Plan Please take your medication as prescribed, see your doctor in the clinic in the next 1 week. Primary Care Provider Care Physician No Primary Time spent on discharge: > 30 minutes Pending Labs Laboratory Tests Test 09/27/18 20:56 09/27/18 21:18 09/28/18 01:35 09/28/18 06:37 White Blood 6.8 7.1 Count 10^3/ul (4.8-10 10^3/ul (4.8-1 .8) 0.8) Red Blood 4.21 4.60 Count 10^6/ul (4.20-5 10^6/ul (4.20- .40) 5.40) Hemoglobin 12.7 13.8 g/dl (12.0-16.0 g/dl (12.0-16. ) 0) Hematocrit 38.6 41.7 % (37.0-47.0) % (37.0-47.0) Mean 91.7 90.7 Corpuscular fl (82.0-101.0) fl (82.0-101.0 Volume ) Mean 30.2 30.0 Corpuscular pg (29.0-33.0) pg (29.0-33.0) Hemoglobin Mean 32.9 33.1 Corpuscular g/dl (32.0-37.0 g/dl (32.0-37. Hemoglobin Conc ) 0) ent Red Cell 14.1 14.0 Distribution % (11.5-14.5) % (11.5-14.5) Width Platelet Count 253 284 10^3/UL (140-41 10^3/UL (140-4 5) 15) Mean Platelet 9.6 9.7 Volume fl (7.4-10.4) fl (7.4-10.4) Immature 0.300 0.100 Granulocytes % % (0.001-0.429) % (0.001-0.429 ) Neutrophils % 47.0 50.9 % (39.0-77.0) % (39.0-77.0) Lymphocytes % 41.6 37.4 % (15.0-51.0) % (15.0-51.0) Monocytes % 8.9 9.3 % (0.0-11.0) % (0.0-11.0) Eosinophils % 1.9 % (0.0-7.0) 2.0 % (0.0-7.0) Basophils % 0.3 % (0.0-2.0) 0.3 % (0.0-2.0) Nucleated Red 0.0 0.0 Blood Cells % /100WBC (0.0-0. /100WBC (0.0-0 0) .0) Immature 0.020 0.010 Granulocytes # 10^3/ul (0.0-0. 10^3/ul (0.0-0 031) .031) Neutrophils # 3.2 3.6 10^3/ul (1.6-7. 10^3/ul (1.6-7 5) .5) Lymphocytes # 2.8 2.6 10^3/ul (0.8-2. 10^3/ul (0.8-2 9) .9) Monocytes # 0.6 0.7 10^3/ul (0.3-0. 10^3/ul (0.3-0 9) .9) Eosinophils # 0.1 0.1 10^3/ul (0.0-0. 10^3/ul (0.0-0 5) .5) Basophils # 0.0 0.0 10^3/ul (0.0-0. 10^3/ul (0.0-0 1) .1) Nucleated Red 0.0 0.0 Blood Cells # 10^3/ul (0.0-0. 10^3/ul (0.0-0 0) .0) Sodium Level 143 142 mmol/L (135-144 mmol/L (135-14 ) 4) Potassium 3.6 4.3 Level mmol/L (3.5-5.1 mmol/L (3.5-5. ) 1) Chloride Level 108 109 mmol/L (97-110) mmol/L (97-110 ) Carbon Dioxide 27 25 Level mmol/L (21-31) mmol/L (21-31) Anion Gap 8 (5-13) 8 (5-13) Blood Urea 16 mg/dl (7-20) 14 Nitrogen mg/dl (7-20) Creatinine 0.81 0.89 mg/dl (0.44-1.0 mg/dl (0.44-1. 0) 00) Est Glomerular > 60 > 60 Filtrat mL/min (>60) mL/min (>60) Rate mL/min Glucose Level 101 107 mg/dl (70-220) mg/dl (70-220) Calcium Level 9.3 9.0 mg/dl (8.4-10.2 mg/dl (8.4-10. ) 2) Total 0.3 0.4 Bilirubin mg/dl (0.2-1.3) mg/dl (0.2-1.3 ) Direct 0.00 0.00 Bilirubin mg/dl (0.00-0.2 mg/dl (0.00-0. 0) 20) Indirect 0.3 0.4 Bilirubin mg/dl (0-1.1) mg/dl (0-1.1) Aspartate Amino 24 IU/L (15-46) 30 Transf (AST/SGO IU/L (15-46) T) Alanine 24 IU/L (13-69) 19 Aminotransferas IU/L (13-69) e (ALT/SGPT) Alkaline 46 56 Phosphatase IU/L (42-121) IU/L (42-121) Troponin I < 0.012 < 0.012 ng/ml (0.000-0. ng/ml (0.000-0 120) .120) Total Protein 6.7 7.0 g/dl (6.1-8.1) g/dl (6.1-8.1) Albumin 3.9 4.0 g/dl (3.3-4.9) g/dl (3.3-4.9) Globulin 2.80 3.00 g/dl (1.3-3.2) g/dl (1.3-3.2) Albumin/Globuli 1.39 1.33 n Ratio Lipase 454 126 U/L (23-300) U/L (23-300) POC Beta HCG, NEGATIVE (NEGA Qualitative TIVE) Creatine 181 Kinase IU/L (23-200) Creatine Kinase 0.5 Index Creatinine 0.97 Kinase MB ng/ml (0.0-2.4 (Mass) ) Hemoglobin A1c 5.5 % (0-5.9) Magnesium 2.0 Level mg/dl (1.7-2.5 ) Triglycerides 97 Level mg/dl (0-149) Cholesterol 158 Level mg/dl (100-200 ) LDL 98 mg/dl Cholesterol, Calculated HDL 41 Cholesterol mg/dl (34-88) Cholesterol/HDL 3.8 RATIO Ratio Thyroid 2.560 Stimulating MIU/L (0.465-4 Hormone (TSH) .680) Test 09/28/18 06:38 Creatine 194 Kinase IU/L (23-200) Creatine Kinase 0.5 Index Creatinine 0.94 Kinase MB ng/ml (0.0-2.4) (Mass) Troponin I < 0.012 ng/ml (0.000-0. 120) PAULETTE ADAMSON Sep 28, 2018 12:11
[2018-09-28] MEDS ORDERED: ZOLPIDEM 5 MG TAB PO SCH (21:00)
[2018-09-29] MEDS ORDERED: PANTOPRAZOLE (EC) 40 MG TAB PO SCH (06:00)
== END 2018-09-28 14:03 | disposition home or self-care (01) | DRG 313 ==
LOC: E/R 19:37 → TEL 23:28
PROVIDERS: ADMIT Internal Medicine; ATTEND Hospitalist
DX: R07.9 Chest pain, unspecified (principal); E66.9 Obesity, unspecified; Z68.31 Body mass index [BMI] 31.0-31.9, adult; I25.2 Old myocardial infarction; R20.0 Anesthesia of skin
CPT/HCPCS: 36415; 71045; 80053; 80061; 81025; 82550; 82553; 83036; 83690; 83735; 84443; 84484; 85025; 93005; 93306; 96361; 96374; 96375; J1644; J1885; J2405; J7040